=== PATIENT | male | born 1965 | race Caucasian/White ===

== ENCOUNTER 2016-11-11 05:38 | Observation (INO) | payer OTHER ==
[~2016-11-11] VITALS: Ht 177.8 cm; Wt 90.7 kg
[2016-11-11] VITALS (7 sets, daily range): BP systolic 95–140; BP diastolic 52–85
[~2016-11-11 05:38] MED LIST: LIPITOR 20 MG T20 M1 PO; PERCOCET 7.5-31 EACH PO; RANITIDINE HCL300 MG PO; WELLBUTRIN XL150 MG PO
[2016-11-12 00:24] VITALS: BP 102/63
[2016-11-12 04:41] VITALS: BP 112/64
[2016-11-12 06:06] LABS: HEMATOCRIT 38.3 % (42.0-52.0); HEMOGLOBIN 13.1 gm/dL (14.0-18.0)
[2016-11-12 06:18] LABS: POTASSIUM 3.6 mmol/L (3.5-5.1)
[2016-11-12] MEDS ORDERED: ASPIRIN325 PO (07:38)
[2016-11-12 07:39] VITALS: BP 108/64
[2016-11-12 10:35] VITALS: BP 108/64
== END 2016-11-12 11:20 | disposition home or self-care (01) ==
LOC: TBA 05:38 → OR 05:38 → 5S 15:31 → OR 15:31 → 5S 15:31
PROVIDERS: Orthopaedic Surgery Foot and Ankle Surgery
DX: S92.001B Unspecified fracture of right calcaneus, initial encounter for open fracture (principal); X58.XXXA Exposure to other specified factors, initial encounter; Y93.89 Activity, other specified; Y92.89 Other specified places as the place of occurrence of the external cause; Y99.8 Other external cause status
CPT/HCPCS: 50010; 50101; 50386; 51412; 55430; 56524; 57091; 62110; 62900; 70005